=== PATIENT | female | born 1965 | race Caucasian/White ===

== ENCOUNTER 2024-06-02 06:34 | Day surgery (SDC) | payer SELFPAY ==
[2024-05-28 13:14] VITALS: BMI 26.6
[2024-06-02] MEDS ORDERED: LIDOCAINE 1%/EPI 1:100000 (20 ML MULTI DOSE VIAL) ONE (07:34)
[2024-06-02] MEDS ORDERED: BUPIVACAINE HCL/PF 2.5 MG/ML - 30 ML VIAL IJ ONE (07:35)
[2024-06-02] MEDS ORDERED: ROCURONIUM BROMIDE 50 MG/5 ML SYRINGE ONE (07:37)
[2024-06-02] MEDS ORDERED: MIDAZOLAM HCL 2 MG/2 ML SINGLE DOSE VIAL ONE (07:37)
[2024-06-02] MEDS ORDERED: PROPOFOL 20 ML ONE ×3 (07:37→09:40)
[2024-06-02] MEDS ORDERED: SUCCINYLCHOLINE CHLORIDE 200 MG/10 ML SYRINGE ONE (07:43)
[2024-06-02] MEDS ORDERED: ePHEDrine SULFATE 50 MG/1 ML AMPULE ONE (07:47)
[2024-06-02] MEDS: LIDOCAINE 1%/EPI 1:100000 (20 ML MULTI DOSE VIAL) IJ ONE (09:30)
[2024-06-02] MEDS ORDERED: HYDROmorphone HCL/PF 1 MG/ML VIAL ONE (15:47)
[2024-06-02] MEDS ORDERED: oxyCODONE HCL 5 MG TABLET PO PRN ×2 (17:13→20:44)
[2024-06-02] MEDS: ONDANSETRON 4 MG/2 ML VIAL IVPUSH PRN (17:47)
[2024-06-02] MEDS ORDERED: ONDANSETRON 4 MG/2 ML VIAL ONE (17:49)
[2024-06-02] MEDS ORDERED: ACETAMINOPHEN INJECTION 100 ML ONE (18:21)
[2024-06-02] MEDS: ACETAMINOPHEN 1000 MG/100 ML BAG IVPB ONE (18:30)
[2024-06-02] MEDS ORDERED: ONDANSETRON 4 MG/2 ML VIAL IVPUSH PRN (20:30)
[2024-06-02] MEDS ORDERED: LACTATED RINGERS SOLUTION 1,000 ML IV SCH (20:30)
[2024-06-02] MEDS ORDERED: ONDANSETRON 4 MG TABLET PO PRN (20:36)
[2024-06-02] MEDS: PROMETHAZINE HCL 25 MG/1 ML VIAL IVPB PRN (20:59)
[2024-06-02] MEDS: CEFAZOLIN 1 GM/D5W 1 GM/50 ML BAG IVPB SCH (21:01)
[2024-06-02] MEDS: DOXYCYCLINE HYCLATE 100 MG CAPSULE PO SCH (21:59)
[2024-06-03 06:19] VITALS: RESP 17
[2024-06-03] MEDS: ACETAMINOPHEN 325 MG TABLET (FP) PO PRN (09:17)
[2024-06-03] MEDS: ENOXAPARIN NA (PORCINE) 40 MG/0.4 ML DISP.SYRIN SQ ONE (09:19)
[2024-06-03] MEDS: SODIUM CHLORIDE 500 ML IV ONE (10:40)
[2024-06-03 12:30] VITALS: BP 88/55; PULSE 77; TEMP 98.2
== END 2024-06-03 13:11 | disposition home or self-care (01) ==
LOC: FASU 06:34 → FASUSAT 06:34 → FM/S 19:43 → FASUSAT 06-03 13:11
PROVIDERS: ATTEND Surgery
PROC: 0H0V0ZZ Alteration of Bilateral Breast, Open Approach (ICD-10-PCS; principal; 2024-06-02 09:14)
DX: N62 Hypertrophy of breast (principal); N64.81 Ptosis of breast
CPT/HCPCS: 88305-TC; 94760; J0131